=== PATIENT | male | born 1960 | race Caucasian/White ===

== ENCOUNTER 2017-12-12 08:26 | Emergency (ER) | payer BC ==
--- NOTE | 2017-12-12 09:23 | ED ---
Back Pain - HPI Summary HPI Summary: 57M presents with acute on chronic back pain. He states there is nothing different about this back pain. He denies any new injury. Denies any fevers. He denies any IV drug use. He denies any loss of bowel or bladder saddle anesthesia. He states he ran out of his pain medication as pain medication was not working for him. He states that his primary cannot give him pain medication for the next 2 days. He is looking for pain medication. He states he feels like he is going withdrawal. He feels anxious. He has pain down his legs that is chronic. He denies any weakness. He takes morphine 4 times a day for his back pain. He states he is having issues getting into pain clinic. - History of Current Complaint Chief Complaint: EDGeneral Stated Complaint: BACK PAIN/WITHDRAWS Time Seen by Provider: 12/12/17 08:52 Pain Intensity: 9 - Allergies/Home Medications Allergies/Adverse Reactions: Allergies Allergy/AdvReac Type Severity Reaction Status Date / Time MS Propoxyphene [From Darvon] Allergy Edema Verified 12/12/17 08:36 PMH/Surg Hx/FS Hx/Imm Hx Endocrine/Hematology History: Denies: Hx Diabetes, Hx Sickle Cell Disease Cardiovascular History: Reports: Hx Hypertension - ON MEDS, Other Cardiovascular Problems/Disorders - PALPITATIONS Denies: Hx Pacemaker/ICD Respiratory History: Denies: Other Respiratory Problems/Disorders GI History: Denies: Other GI Disorders History: Denies: Hx Renal Disease Musculoskeletal History: Reports: Hx Arthritis - HANDS AND KNEES Sensory History: Reports: Hx Contacts or Glasses - GLASSES Denies: Hx Hearing Aid Opthamlomology History: Reports: Hx Contacts or Glasses - GLASSES Neurological History: Reports: Other Neuro Impairments/Disorders - PAIN CLINIC PT Psychiatric History: Denies: Hx Panic Disorder - Surgical History Surgery Procedure, Year, and Place: RT HIP REPLACEMENT. BILATERAL HERNIA REPAIR. SCREW IN LEFT ELBOW. Rt SHOULDER RCT REPAIR 2016 Hx Anesthesia Reactions: No Infectious Disease History: No Infectious Disease History: Denies: Traveled Outside the [place] in Last 30 Days - Family History Known Family History: Positive: Hypertension - Social History Alcohol Use: None Alcohol Amount: 6 BEERS A DAY Substance Use Type: Reports: None Smoking Status (MU): Former Smoker Amount Used/How Often: PACK A DAY Review of Systems Negative: Fever Negative: Chest Pain Negative: Shortness Of Breath Positive: Myalgia - back pain All Other Systems Reviewed And Are Negative: Yes Physical Exam Triage Information Reviewed: Yes Vital Signs On Initial Exam: Initial Vitals Temp Pulse Resp BP Pulse Ox 97.6 F 87 16 147/94 98 12/12/17 08:31 12/12/17 08:31 12/12/17 08:31 12/12/17 08:31 12/12/17 08:31 Vital Signs Reviewed: Yes Appearance: Positive: Well-Appearing Skin: Positive: Warm, Dry Head/Face: Positive: Normal Head/Face Inspection Eyes: Positive: Normal, EOMI, Conjunctiva Clear Respiratory/Lung Sounds: Positive: Clear to Auscultation, Breath Sounds Present Cardiovascular: Positive: Normal, RRR Musculoskeletal: Positive: Strength/ROM Intact - back, Other - tenderness lower back, neg SLR, good pulses, sensation grossly intact Neurological: Positive: Normal Psychiatric: Positive: Normal Diagnostics - Vital Signs Vital Signs Temp Pulse Resp BP Pulse Ox 12/12/17 08:31 97.6 F 87 16 147/94 98 - Laboratory Lab Statement: Any lab studies that have been ordered have been reviewed, and results considered in the medical decision making process. Back Pain Course/Dx - Course Course Of Treatment: 57M presents with acute on chronic back pain. He states there is nothing different about this back pain. He denies any new injury. Denies any fevers. He denies any IV drug use. He denies any loss of bowel or bladder saddle anesthesia. He states he ran out of his pain medication as pain medication was not working for him. He states that his primary cannot give him pain medication for the next 2 days. He is looking for pain medication. He states he feels like he is going withdrawal. He feels anxious. He has pain down his legs that is chronic. He denies any weakness. He takes morphine 4 times a day for his back pain. He states he is having issues getting into pain clinic. on exam has tenderness lower back. neg SLR. neurovascular intact. attempted to call dr Yarbrough twice and got hung up on. will treat for withdrawal symptoms with clondine and start muscle relaxer and steriod packet for pain. patient understand and agrees with plan. - Diagnoses Differential Diagnosis/HQI/PQRI: Positive: Herniated Disc, Strain, Sprain Provider Diagnoses: Back pain Discharge - Discharge Plan Condition: Good Disposition: HOME Prescriptions: cloNIDine TAB* [Catapres 0.1 MG TAB*] 0.1 mg PO Q8HR PRN #12 tab PRN Reason: Withdrawal - Opiate Methocarbamol TAB* [Robaxin 500 MG TAB*] 750 mg PO TID PRN #15 tab PRN Reason: Pain methylPREDNISolone [Medrol Dosepak 4 MG*] 4 mg PO .SEE KAM INSTRUCTION #1 packet Patient Education Materials: Back Pain (ED) Referrals: Ramirez Yarbrough MD [Primary Care Provider] - Additional Instructions: Follow directions on package for Medrol pack Take muscle relaxers three times a day Take clonidine every 8 hours as need for withdrawal symptoms such as anxiety Use ibuprofen or Tylenol for pain every 6 hours ice/heat area, move as much as possible Follow up with primary within 5 days Return to ED if develop any new or worsening symptoms
[2017-12-12] MEDS ORDERED: Ketorolac INJ* 60 MG/2 ML VIAL IM ONE (09:30)
[2017-12-12 09:49] VITALS: BP 145/92
== END 2017-12-12 09:48 | disposition home or self-care (01) ==
LOC: ED 08:26
DX: M54.9 Dorsalgia, unspecified (principal); Z86.79 Personal history of other diseases of the circulatory system; Z87.891 Personal history of nicotine dependence
CPT/HCPCS: 96372; 99282; J1885

== ENCOUNTER 2018-05-30 10:10 | Day surgery (SDC) | payer SELFPAY ==
--- NOTE | 2018-05-22 21:13 | HP ---
CC: Dr. aRmirez Yarbrough * ADMISSION HISTORY AND PHYSICAL: DATE OF ADMISSION: 05/30/18 ATTENDING SURGEON: Dr. Vance Small.* (DICTATED BY MASON GRIJALVA) CHIEF COMPLAINT: Recurrent left inguinal hernia. HISTORY OF PRESENT ILLNESS: This is a 57-year-old male, who underwent laparoscopic repair of bilateral inguinal hernias with mesh in [address] Small. Beginning about 6 months ago, the patient noted the presence of sharp pain in the left groin area, particularly related to activity. It would be relieved by rest or pressure over the area. It occurs approximately 3 times a month basis. He has had no change in GI or function. He was seen in the office by Dr. Small on 05/15/18, at which time exam confirmed the presence of a reducible left inguinal hernia, apparently emanating laterally from the deep ring. Dr. Small discussed with him the options. The patient understands the indications, risks, benefits, and alternatives and would like to proceed as scheduled with open repair of left inguinal hernia with mesh. Because the patient is currently undergoing detox of narcotics, he specifically requested no narcotics during the postoperative period. He was instructed by his pain management team (Dr. Hopper in [place]) to stop his naltrexone before bedtime the evening before surgery. He was also requesting that Dr. Small divide the cutaneous nerve. The patient will relay this request to Dr. Small on the day of surgery. PAST MEDICAL HISTORY: Chronic back pain and arthritis pain, history of prescription opioid addiction (currently undergoing detox), restless legs syndrome, insomnia, hypertension, BPH. PAST SURGICAL HISTORY: Previous surgeries include laparoscopic bilateral inguinal hernia repair as noted above, right hip arthroplasty, left elbow surgery, right shoulder surgery, nasal septoplasty. No reported surgical or anesthesia complications. CURRENT MEDICATIONS: 1. Trazodone 50 mg 4 tablets q.h.s. 2. Aspirin 81 mg once daily (the patient is instructed to stop preoperatively, his last dose being 05/22/18). 3. Lisinopril-hydrochlorothiazide 20-12.5 once daily. 4. Gabapentin 300 mg 2 tablets q.h.s. (he uses for restless legs syndrome). 5. Diflunisal 500 mg b.i.d. 6. Naltrexone 50 mg, in suspension, 2 mg q. 4 hours and 3 mg q.h.s. 7. Pramipexole 0.25 mg q.h.s. 8. Tamsulosin 0.4 mg 2 tablets daily. 9. Vitamin D3 1000 IU once daily. 10. Vitamin B12 2500 mcg once daily. ALLERGIES: DARVON (swelling and itching) FAMILY HISTORY: Negative for anesthesia problems, bleeding, or clotting disorders. SOCIAL HISTORY: The patient lives with his son. He is not currently working. He is a former smoker, who quit over 20 years ago. He quit alcohol 2 years ago. He denies any history of recreational drug use. REVIEW OF SYSTEMS: General: No recent constitutional symptoms or acute illnesses other than described in the HPI. His weight has been stable. HEENT: No problems reported or changes. Cardiovascular: No chest pain, palpitations , or history of heart murmur. He is treated for hypertension. No history of FL or angina. Respiratory: No history of asthma, chronic cough, or shortness of breath. Smoking history as noted. GI: He does have some dyspeptic symptoms that he relates to the diflunisal, otherwise no problems reported. Colonoscopy done within the past 5 years reportedly normal. : BPH. No additions. Endocrine: No diabetes or thyroid dysfunction. Neuro/Psych: Chronic pain, currently undergoing detox as noted above. Musculoskeletal: Rheumatoid arthritis. PHYSICAL EXAMINATION GENERAL: Well-nourished, well-developed white male, in no acute distress. VITAL SIGNS: Height 69 inches, weight 160 pounds. Blood pressure 128/80, pulse 74, respirations 18. HEENT: Pupils equal and round, reactive. EOMs intact. No conjunctival pallor. Oropharynx: Teeth in good repair. No intraoral lesions. NECK: No lymphadenopathy, thyromegaly, or masses. LUNGS: Clear to auscultation. No rales or wheezes. HEART: Regular rate and rhythm. No murmur noted. ABDOMEN: Soft, nontender to palpation. No palpable masses or organomegaly with the exception of the aforementioned left inguinal hernia per Dr. Small' exam. GENITALIA: Not re-examined. RECTAL: Not done. BACK: No spinous process or CVA tenderness. EXTREMITIES: No edema. NEUROLOGICAL: Grossly intact. SKIN: Warm and dry. No suspicious rashes or lesions noted. IMPRESSION: Recurrent left inguinal hernia. PLAN: Open repair of left inguinal hernia with mesh. MASON GRIJALVA [id number]/[facility] #: [id number] [facility]IVERSIDE HOSPITALAvelino
[~2018-05-30 10:10] MED LIST: Buffered Lidocaine 0.9% SYRIN* 5 ML/SYR SYRINGE INTRADERM ONE; Dexamethasone IV* 4 MG/ML 1 ML (4 MG) IV SLOW PU ONE; Famotidine IV* 10 MG/ML 2 ML (20 mg) IV ONE; Lidocaine 1% INJ* 10 MG/ML 30 ML SDV ONE; ROPIVACAINE 5 MG/ML 30 ML BTL (0.5%) ONE
[2018-05-30] MEDS ORDERED: ceFAZolin 2 GM PREMIX in ORs 2 GM/50 ML BAG IVPB ONE (10:17)
[2018-05-30] MEDS ORDERED: Famotidine IV* 10 MG/ML 2 ML (20 mg) ONE (10:17)
[2018-05-30] MEDS ORDERED: Dexamethasone IV* 4 MG/ML 1 ML (4 MG) ONE (10:17)
[2018-05-30] MEDS ORDERED: Acetaminophen IV 1GM/100ML * 1,000 MG/100 ML VIAL IVPB ONE (10:51)
[2018-05-30] MEDS ORDERED: PROCHLORPERAZINE INJ 5 MG/ML 2 ML VIAL IV PRN (10:51)
[2018-05-30] MEDS ORDERED: Naloxone* 0.4 MG/ML 1 ML VIAL IV PRN (10:51)
[2018-05-30] MEDS ORDERED: Ketorolac INJ* 30 MG/ML 1 ML VIAL IV PRN (10:51)
[2018-05-30] MEDS ORDERED: Heparin VIAL(*) 5000 UNITS/ML VIAL (FIVE THOUSAND) ONE (10:53)
[2018-05-30] MEDS ORDERED: cloNIDine TAB* 0.1 MG PO ONE (10:53)
[2018-05-30] MEDS ORDERED: Phenylephrine IV* 40 MCG/ML 10 ML SYRINGE ONE ×2 (11:00→12:07)
[2018-05-30] MEDS ORDERED: Propofol* 10 MG/ML 20 ML BTL IV PUSH ONE (11:00)
[2018-05-30] MEDS ORDERED: Lidocaine 2% PF * 5 ML VIAL ONE (11:00)
[2018-05-30] MEDS ORDERED: Ketorolac INJ* 30 MG/ML 1 ML VIAL ONE (11:32)
--- NOTE | 2018-05-30 12:27 | OP ---
Operative Report - Blank - Operative Report Date of Operation: 05/30/18 Note: Brief Operative Note Preop Dx: Recurrent Left Inguinal Hernia Postop Dx: same Procedure: open repair LIH w/ mesh Anesthesia: GET Surgeon: Geovanny Student Development Dean: MASON Gomes Fluids: 1000 ml RL EBL: < 10 ml Specimen: Left ileoinguinal nerve Drains: none Findings: dictated
[2018-05-30] MEDS ORDERED: Acetaminophen IV 1GM/100ML * 100 ML ONE (12:52)
[2018-05-30 13:32] VITALS: BP 136/86
--- NOTE | 2018-05-31 21:35 | OP ---
CC: Ramirez Yarbrough MD * DATE OF OPERATION: 05/30/18 - [facility] DATE OF : 60 SURGEON: Vance Small MD NURSE ANESTHETIST: MASON Nuñez ANESTHESIOLOGIST: Dr. Lyon. ANESTHESIA: General endotracheal. PRE-OP DIAGNOSIS: Recurrent left inguinal hernia. POST-OP DIAGNOSIS: Recurrent left inguinal hernia. OPERATIVE PROCEDURE: Open repair of recurrent left inguinal hernia with mesh. ESTIMATED BLOOD LOSS: Minimal. IV FLUIDS: Crystalloids. SPECIMEN: Portion of . DRAINS: None. COMPLICATIONS: None. COUNTS: Instrument, needle, and sponge counts were correct. DESCRIPTION OF PROCEDURE: The patient was brought to the operating room and placed on the table supine. Sequential compression devices were placed on both lower extremities. General anesthesia was administered. He received appropriate intravenous antibiotics. He was prepped and draped in usual sterile fashion. Time-out was performed. Local anesthetic was infiltrated into the skin and soft tissue prior to making each incision. An oblique incision was made in the left groin and subcutaneous tissues were divided with cautery and external oblique aponeurosis was identified. This was opened in line along the line of its fibers through the superficial ring. The aponeurosis was reflected back upon itself. The ilioinguinal nerve was identified and candidates for this were isolated with Allis clamp, elevated and then ligated and divided laterally with absorbable ties. The segment of the nerve was submitted to pathology. Next, the contents of the inguinal canal were isolated with a Chelsey drain at the level of the pubic tubercle. There was herniated fat through the deep ring, which was dissected free and this was too small lipomas that were ligated at the base and divided. There was some weakness in the deep ring with no other herniating structures. The previously placed mesh was present. Due to the presence of the hernia in the , repair was performed with Medtronic ProGrip mesh. The mesh was positioned to cover the entire floor, positioning the mesh around the cord structures to cover the area of the deep ring. The external oblique aponeurosis was run closed with 2-0 Vicryl, Ulysses's was closed with 3-0 Vicryl in an interrupted fashion and the skin was closed with 4-0 Monocryl in a running subcuticular fashion. The Steri-strips were applied. The patient tolerated this procedure well. He was extubated and transferred to recovery room in stable condition. [id number]/[facility] #: [id number] MARELY
== END 2018-05-30 13:51 | disposition home or self-care (01) ==
LOC: OR 10:10
PROVIDERS: ATTEND Surgery
DX: K40.91 Unilateral inguinal hernia, without obstruction or gangrene, recurrent (principal); F11.20 Opioid dependence, uncomplicated; M54.9 Dorsalgia, unspecified; I10 Essential (primary) hypertension; Q23.1 Congenital insufficiency of aortic valve; G47.33 Obstructive sleep apnea (adult) (pediatric)
CPT/HCPCS: 88302; A9270-GY; J0690; J1100; J1644; J1885; J2704; J2795

== ENCOUNTER 2018-09-06 08:34 | Day surgery (SDC) | payer OTHER ==
[~2018-09-06 08:34] MED LIST changes: +Acetaminophen TAB* 325 MG PO PRN; +Cyclopentolate 1% OPTH.SOL* 2 ML BTL ONE; -Dexamethasone IV* 4 MG/ML 1 ML (4 MG) IV SLOW PU ONE; -Famotidine IV* 10 MG/ML 2 ML (20 mg) IV ONE; +Ketorolac 0.5% OPHTH (NF) 0.5 % 5 ML BTL ONE; -Lidocaine 1% INJ* 10 MG/ML 30 ML SDV ONE; +Lidocaine 1%* 5 ML VIAL ONE; +Lidocaine 2% EPI 1:200000 MPF*10-20 ML VIAL ONE; +Neomycin/Polymy/Dex OPTH.SUSP* MAXITROL 0.1% 5 ML ONE; +Phenylephrine 2.5% OPTH.SOL* 2 ML BTL ONE; +Povidone Iodine 5% OPTH* 30 ML BTL ONE; +Proparacaine 0.5% OPHTH.SOL* 15 ML BTL ONE; -ROPIVACAINE 5 MG/ML 30 ML BTL (0.5%) ONE; +acetaZOLAMIDE TAB* 250 MG ONE
[2018-09-06] MEDS ORDERED: Midazolam* 1 MG/ML 5 ML VIAL (5 MG) ONE (10:47)
[2018-09-06 11:14] VITALS: BP 96/56
--- NOTE | 2018-09-06 11:40 | OP ---
DATE OF OPERATION: 09/06/18 [facility] DATE OF : 60 SURGEON: Lincoln Shepherd M.D. PREOPERATIVE DIAGNOSIS: Cataract, right eye. POSTOPERATIVE DIAGNOSIS: Cataract, right eye. OPERATIVE PROCEDURE: Extracapsular cataract extraction with intraocular lens implant right eye. DESCRIPTION OF PROCEDURE: The patient was brought to the operating room after being given 1/2% Alcaine with epinephrine drops in the preoperative area. The eye was prepped and draped in the usual sterile fashion. Sterile drape and eyelid speculum were placed. Again, topical 1/2% Alcaine with epinephrine was given. A paracentesis incision was made at the 9 o'clock position with the No. 75 blade. Clear cornea incision 2.2 x 2.2-mm was created at the 12 o'clock position starting at the anterior limbus using the 2.2-mm keratome. The anterior chamber was irrigated with 0.4 mL of 1% non-preservative intracameral lidocaine and filled with DisCoVisc. A capsulorrhexis was completed using the cystotome and the Utrata forceps. Hydrodissection was performed with balanced salt solution. The lens nucleus was removed with the Phacoemulsification handpiece without incident. Cortex was removed with the irrigation-aspiration handpiece. The capsular bag was re-inflated using DisCoVisc and an [id number] 17.0 implant was inserted with the shooter. The irrigation-aspiration handpiece was used to remove all residual DisCoVisc. The eye was refilled with balanced salt solution and the wound checked and found to be watertight. Topical Maxitrol drops were given. [id number]/[facility] #: [id number] [facility]
== END 2018-09-06 11:22 | disposition home or self-care (01) ==
LOC: OREAST 08:34
PROVIDERS: ATTEND Specialist
DX: Z01.818 Encounter for other preprocedural examination (principal); H25.811 Combined forms of age-related cataract, right eye; I10 Essential (primary) hypertension; M19.90 Unspecified osteoarthritis, unspecified site
CPT/HCPCS: A9270-GY; J2250; V2632

== ENCOUNTER 2018-09-13 07:18 | Day surgery (SDC) | payer OTHER ==
[~2018-09-13 07:18] MED LIST changes: -Cyclopentolate 1% OPTH.SOL* 2 ML BTL ONE; -Ketorolac 0.5% OPHTH (NF) 0.5 % 5 ML BTL ONE; -Lidocaine 1%* 5 ML VIAL ONE; -Lidocaine 2% EPI 1:200000 MPF*10-20 ML VIAL ONE; -Neomycin/Polymy/Dex OPTH.SUSP* MAXITROL 0.1% 5 ML ONE; -Phenylephrine 2.5% OPTH.SOL* 2 ML BTL ONE; -Povidone Iodine 5% OPTH* 30 ML BTL ONE; -Proparacaine 0.5% OPHTH.SOL* 15 ML BTL ONE; -acetaZOLAMIDE TAB* 250 MG ONE
[2018-09-13] MEDS ORDERED: Midazolam* 1 MG/ML 2 ML VIAL (2 MG) ONE (09:04)
[2018-09-13 09:20] VITALS: BP 106/64
[2018-09-13] MEDS ORDERED: Lidocaine 1%* 5 ML VIAL ONE (11:11)
[2018-09-13] MEDS ORDERED: acetaZOLAMIDE TAB* 250 MG ONE (11:11)
[2018-09-13] MEDS ORDERED: Cyclopentolate 1% OPTH.SOL* 2 ML BTL ONE (11:11)
[2018-09-13] MEDS ORDERED: Phenylephrine 2.5% OPTH.SOL* 2 ML BTL ONE (11:11)
[2018-09-13] MEDS ORDERED: Ketorolac 0.5% OPHTH (NF) 0.5 % 5 ML BTL ONE (11:11)
[2018-09-13] MEDS ORDERED: Neomycin/Polymy/Dex OPTH.SUSP* MAXITROL 0.1% 5 ML ONE (11:11)
[2018-09-13] MEDS ORDERED: Lidocaine 2% EPI 1:200000 MPF*10-20 ML VIAL ONE (11:11)
[2018-09-13] MEDS ORDERED: Povidone Iodine 5% OPTH* 30 ML BTL ONE (11:11)
[2018-09-13] MEDS ORDERED: Proparacaine 0.5% OPHTH.SOL* 15 ML BTL ONE (11:11)
--- NOTE | 2018-09-13 15:41 | OP ---
DATE OF OPERATION: 09/13/18 [facility] DATE OF : 60 SURGEON: Lincoln Shepherd M.D. PREOPERATIVE DIAGNOSIS: Cataract, left eye. POSTOPERATIVE DIAGNOSIS: Cataract, left eye. OPERATIVE PROCEDURE: Extracapsular cataract extraction with intraocular lens implant, left eye. DESCRIPTION OF PROCEDURE: The patient was brought to the operating room after being given 1/2% Alcaine with epinephrine drops in the preoperative area. The eye was prepped and draped in the usual sterile fashion. Sterile drape and eyelid speculum were placed. Again, topical 1/2% Alcaine with epinephrine was given. A paracentesis incision was made at the 3 o'clock position with the No. 75 blade. Clear cornea incision 2.2 x 2.2-mm was created at the 6 o'clock position starting at the anterior limbus using the 2.2-mm keratome. The anterior chamber was irrigated with 0.4 mL of 1% non-preservative intracameral lidocaine and filled with DisCoVisc. A capsulorrhexis was completed using the cystotome and the Utrata forceps. Hydrodissection was performed with balanced salt solution. The lens nucleus was removed with the Phacoemulsification handpiece without incident. Cortex was removed with the irrigation-aspiration handpiece. The capsular bag was re-inflated using DisCoVisc and an [id number] 18.5 implant was inserted with the shooter. The irrigation-aspiration handpiece was used to remove all residual DisCoVisc. The eye was refilled with balanced salt solution and the wound checked and found to be watertight. Topical Maxitrol drops were given. [id number]/[facility] #: [id number] [facility]
== END 2018-09-13 09:25 | disposition home or self-care (01) ==
LOC: OREAST 07:18
PROVIDERS: ATTEND Specialist
DX: H25.812 Combined forms of age-related cataract, left eye (principal); I10 Essential (primary) hypertension; J45.909 Unspecified asthma, uncomplicated; Z87.891 Personal history of nicotine dependence
CPT/HCPCS: A9270-GY; J2250; V2632

== ENCOUNTER 2020-11-09 07:25 | Observation (INO) ==
[2020-11-09 08:15] LABS: ABS Basophils 0.1 10^3/ul (0-0.2); ABS Eosinophils 0.2 10^3/ul (0-0.6); ABS Lymphocytes 0.8 10^3/ul (1.0-4.8); ABS Monocytes 0.7 10^3/ul (0-0.8); ABS Neutrophils 13.5 10^3/ul (1.5-7.7); Eosinophil % 1.2 %; Hematocrit 38 % (42-52); Hemoglobin 12.5 g/dL (14.0-18.0); Mean Corpuscular HGB Conc 33 g/dL (31-36); Mean Corpuscular Hemoglobin 31 pg (27-31); Mean Corpuscular Volume 92 fL (80-94); Mean Platelet Volume 6.3 fL (7.4-10.4); Platelet Count 585 10^3/uL (150-450); Red Blood Count 4.11 10^6 /uL (4.18-5.48); Red Cell Distribution Width 12 % (10-15); White Blood Count 15.3 10^3/uL (3.5-10.8)
[2020-11-09 08:28] LABS: Urine Appearance Clear; Urine Bilirubin Negative (Negative); Urine Blood Negative (Negative); Urine Color Yellow; Urine Glucose Negative (Negative); Urine Ketones 1+ (Negative); Urine Nitrite Negative (Negative); Urine Protein Negative (Negative); Urine Urobilinogen Negative (Negative)
[2020-11-09 08:30] LABS: Activated Partial Thrombo Time 29.3 seconds (26.0-38.0); INR 1.22 (0.82-1.09)
[2020-11-09 08:36] LABS: Albumin 3.3 g/dL (3.2-5.2); Albumin/Globulin Ratio 0.9 (1-3); BUN/Creatinine Ratio 19.2 (8-20); C Reactive Protein 65.09 mg/L (<8.01); Calcium 8.8 mg/dL (8.6-10.3); EGFR African American 122.9 (>60); EGFR Non-African American 101.5 (>60); Globulin 3.5 g/dL (2-4); Potassium 4.1 mmol/L (3.5-5.0); Total Bilirubin 0.4 mg/dL (0.2-1.0); Total Protein 6.8 g/dL (6.4-8.9)
[2020-11-09 08:37] LABS: Troponin I 0.01 ng/mL (<0.03)
[2020-11-09] MEDS ORDERED: Azithromycin 500 mg/250 ml NS 500 MG/250 ML BAG IVPB ONE (09:05)
[2020-11-09] MEDS ORDERED: cefTRIAXone 1 gm/50 mL NS BAG 1 GM/50 ML BAG IV ONE (09:05)
[2020-11-09 12:56] LABS: Folate 9.3 ng/mL (>3.99)
[2020-11-09] MEDS: Enoxaparin 40 MG/0.4 ML SYR SUBCUT SCH (15:15)
[2020-11-09] MEDS: DOXYcycline 100 MG in NS 0.9% 250 ml 250 ML IVPB SCH (17:42)
[2020-11-10] MEDS: DOXYcycline 100 MG in NS 0.9% 250 ml 250 ML IVPB SCH ×2 (05:06→18:00)
[2020-11-10] MEDS: Ondansetron 4 mg VIAL 2 MG/ML 2 ml VIAL IV PRN ×2 (05:15→18:00)
[2020-11-10 08:10] LABS: ABS Basophils 0.1 10^3/ul (0-0.2); ABS Eosinophils 0.3 10^3/ul (0-0.6); ABS Lymphocytes 1.5 10^3/ul (1.0-4.8); ABS Monocytes 0.8 10^3/ul (0-0.8); ABS Neutrophils 6.1 10^3/ul (1.5-7.7); Eosinophil % 3.1 %; Hematocrit 36 % (42-52); Hemoglobin 12.3 g/dL (14.0-18.0); Lymphocyte % 17.5 %; Mean Corpuscular HGB Conc 34 g/dL (31-36); Mean Corpuscular Hemoglobin 31 pg (27-31); Mean Corpuscular Volume 92 fL (80-94); Mean Platelet Volume 6.6 fL (7.4-10.4); Platelet Count 611 10^3/uL (150-450); Red Blood Count 3.92 10^6 /uL (4.18-5.48); Red Cell Distribution Width 13 % (10-15); White Blood Count 8.8 10^3/uL (3.5-10.8)
[2020-11-10 08:26] LABS: BUN/Creatinine Ratio 17.3 (8-20); EGFR African American 128.5 (>60); EGFR Non-African American 106.2 (>60); Magnesium 1.8 mg/dL (1.9-2.7); Potassium 4.7 mmol/L (3.5-5.0)
[2020-11-10] MEDS: cefTRIAXone 1 gm/50 mL NS BAG 1 GM/50 ML BAG IVPB SCH (08:41)
[2020-11-10] MEDS: Enoxaparin 40 MG/0.4 ML SYR SUBCUT SCH (08:41)
[2020-11-10 09:40] LABS: HDL Cholesterol 26.4 mg/dL
[2020-11-10] MEDS ORDERED: Magnesium Sulfate 2 gm BAG 2 GM/50 ML BAG IVPB ONE (09:52)
[2020-11-10] MEDS: Lidocaine PATCH 5% PATCH TRANSDERM SCH (10:02)
[2020-11-10] MEDS ORDERED: Lidocaine Patch REMOVE PATCH PATCH OFF SCH (21:00)
[2020-11-11] MEDS: DOXYcycline 100 MG in NS 0.9% 250 ml 250 ML IVPB SCH (06:25)
[2020-11-11 06:32] LABS: Calcium 8.9 mg/dL (8.6-10.3); Potassium 4.1 mmol/L (3.5-5.0)
[2020-11-11 06:38] LABS: BUN/Creatinine Ratio 17.1 (8-20); EGFR Non-African American 95.8 (>60)
[2020-11-11] MEDS: Ondansetron 4 mg VIAL 2 MG/ML 2 ml VIAL IV PRN (09:03)
[2020-11-11] MEDS: cefTRIAXone 1 gm/50 mL NS BAG 1 GM/50 ML BAG IVPB SCH (09:03)
[2020-11-11] MEDS: Enoxaparin 40 MG/0.4 ML SYR SUBCUT SCH (09:06)
[2020-11-11] MEDS: Lidocaine PATCH 5% PATCH TRANSDERM SCH (09:10)
[2020-11-11 11:43] VITALS: BP 124/72
== END 2020-11-11 13:00 | disposition home or self-care (01) ==
LOC: MED 07:25 → ED 07:25 → MED 13:32
PROVIDERS: ADMIT Internal Medicine; ATTEND Internal Medicine